=== PATIENT | female | born 1990 | race African-American/Black ===

== ENCOUNTER 2021-09-06 10:04 | Outpatient (CLI) | payer OTHER ==
[~2021-09-06] VITALS: Ht 160 cm; Wt 87.1 kg
[2021-09-06] VITALS (7 sets, daily range): BP systolic 105–115; BP diastolic 58–69; PULSE 73–86; TEMP 97.9
--- NOTE | 2021-09-06 10:15 | NUR ---
PT ARRIVES AMBULATORY TO UNIT FOR SCHEDULED EXTERNAL VERSION. REPORTS INTERMITTENT CONTRACTIONS "SOME ARE REGULAR, OTHERS COME AND GO." DENIES LEAKING OF FLUID. REPORTS POSITIVE MOVEMENT. ORIENTED TO LABOR ROOM AND PLAN OF CARE. CONSENTS SIGNED. DENIES FURTHER QUESTIONS OR CONCERNS, WILL PROCEED WITH PLAN OF CARE PER PROTOCOL AT THIS TIME.
--- NOTE | 2021-09-06 12:22 | NUR ---
BEDSIDE ULTRASOUND PERFORMED FOLLOWING EXTERNAL VERSION PER WITH ASSIST. VERTEX PRESENTATION CONFIRMED. BRADYCARDIA AT THIS TIME, PT PLACED IN LEFT LATERAL POSITION, LR BOLUS INFUSING PER VORB. HEART RATE BEGINS TO RECOVER WITH INTERVENTIONS. NO NEW ORDERS AT THIS TIME. WILL CONTINUE TO MONITOR.
[2021-09-06] MEDS ORDERED: PRENATAL PO (12:29)
--- NOTE | 2021-09-06 12:46 | NUR ---
EFM TRACING MINIMAL VARIABILITY. PT OFFERED FOOD AND DRINK PER . LR BOLUS CONTINUES INFUSING PER VORB. NO FURTHER ORDERS AT THIS TIME.
--- NOTE | 2021-09-06 12:59 | NUR ---
ROLES ON UNIT REVIEWING STRIP. EFM TRACING CATEGORY 1 STRIP AT THIS TIME. PT SITTING UP EATING LIGHT LUNCH. PER ROLES PT MAY DC UNIT @ 1230 IF BABY CONTINUES CATEGORY 1 EFM TRACING. PT UPDATED AND AGREEABLE ON POC.
--- NOTE | 2021-09-06 13:35 | NUR ---
ALL DC PAPERWORK REVIEWED AND UNDERSTOOD. PT DENIES FURTHER QUESTIONS OR CONCERNS. AMBULATORY FROM UNIT IN STABLE CONDITION. CATEGORY 1 EFM TRACING PRIOR TO DC.
== END 2021-09-06 13:35 | disposition home or self-care (01) ==
LOC: LDRO 10:04
DX: O99.013 Anemia complicating pregnancy, third trimester (principal); O26.893 Other specified pregnancy related conditions, third trimester; R51.9 Headache, unspecified; Z3A.38 38 weeks gestation of pregnancy
CPT/HCPCS: J3105; J7120

== ENCOUNTER 2021-09-16 05:20 | Inpatient (IN) | payer OTHER ==
[~2021-09-16] VITALS: Ht 157.5 cm; Wt 87.7 kg
[2021-09-16] VITALS (16 sets, daily range): BP systolic 96–139; BP diastolic 55–95; PULSE 56–106; TEMP 98–98.3
[~2021-09-16 05:20] MED LIST: PRENATAL PO
--- NOTE | 2021-09-16 05:30 | NUR ---
0530 TO 209 FOR SCHEDULED C/SECT. EFM ON. PERMITS SIGNED. IV STARTED AND LAB OBTAINED. SCHEDULED MEDS GIVEN.
[2021-09-16 06:19] LABS: HEMOGLOBIN 11.4 g/dl (12.5-16.0); MEAN CELL VOLUME 80 fl (80.0-100.0); MEAN CORPUSCULAR HEMOGLOBIN 30 pg (27-31); MEAN CORPUSCULAR HGB CONC 37 g/dl (33.0-37.0); PLATELET COUNT 178 K/mm3 (130-400); RED BLOOD COUNT 3.87 M/mm3 (4.10-5.30); REDCELL DISTRIBUTION WIDTH-CV 12.5 % (11.5-14.5)
[2021-09-16 06:20] LABS: HEMATOCRIT 30.8 % (37.0-47.0)
[2021-09-16] MEDS ORDERED: NATURAL IRON65 MG (06:35)
[2021-09-16] MEDS ORDERED: OSCAL 500 TAB500 MG PO (06:35)
[2021-09-16 07:13] LABS: BAND 6 % (0-10); EOSINOPHIL 2 % (0-4); LYMPHOCYTE 28 % (20.0-51.0); METAMYELOCYTE 1 % (0-0); NEUTROPHILS 57 % (42.0-75.2); PLATELET ESTIMATE NORMAL (NORMAL)
[2021-09-17 02:50] VITALS: BP 103/67; PULSE 65; TEMP 97.9
[2021-09-17 08:30] VITALS: BP 103/67; PULSE 69; TEMP 97.7
--- NOTE | 2021-09-17 11:42 | NUR ---
Initial visit attempt; Family resting, Social Service Director left card of congratulations' God's blessings for the of their son and information regarding the availability of spiritual care at our hospital.
[2021-09-17 12:40] VITALS: BP 103/65; PULSE 62; TEMP 98.2
[2021-09-17 20:45] VITALS: BP 104/69; PULSE 73; TEMP 98.3
[2021-09-18] MEDS ORDERED: MOTRIN 800800 MG/TAB PO (08:38)
[2021-09-18] MEDS ORDERED: ROXICODONE 55 MG/TAB PO (08:38)
[2021-09-18 09:00] VITALS: BP 107/78; PULSE 70; TEMP 97.9
--- NOTE | 2021-09-18 12:45 | NUR ---
Discharge instructions and follow up care reviewed with pt and at the bedside. Both verbalized an understanding, agreed with the plan and states no questions or concerns at this time.
== END 2021-09-18 13:15 | disposition home or self-care (01) | DRG 788 ==
LOC: OB 05:20
PROVIDERS: ADMIT Obstetrics & Gynecology
PROC: 10D00Z1 Extraction of Products of Conception, Low, Open Approach (ICD-10-PCS; principal; 2021-09-16)
DX: O32.1XX0 Maternal care for breech presentation, not applicable or unspecified (principal); Z37.0 Single live birth; O34.03 Maternal care for unspecified congenital malformation of uterus, third trimester; Q51.810 Arcuate uterus; O69.81X0 Labor and delivery complicated by cord around neck, without compression, not applicable or unspecified; Z3A.39 39 weeks gestation of pregnancy
CPT/HCPCS: J0690; J1100; J1885; J2405; J2590; J2765; J7120